=== PATIENT | male | born 1965 | race Caucasian/White ===

== ENCOUNTER 2018-05-06 10:25 | Inpatient (IN) | payer OTHER ==
[~2018-05-06] VITALS: Ht 175.3 cm; Wt 94.1 kg
[2018-05-06 11:53] LABS: BASOPHILS % 0.6 % (0.0-2.0); EOSINOPHILS % 3.4 % (0.0-5.0); HEMATOCRIT. 40.7 % (42.0-52.0); HEMOGLOBIN. 14.1 g/dL (14.0-18.0); LYMPHOCYTES % 11.9 % (20.0-50.0); MEAN CORPUSCULAR HEMOGLOBIN 31.3 pg (28.0-32.0); MEAN CORPUSCULAR VOLUME 90.3 fL (80.0-94.0); MEAN PLATELET VOLUME 8.3 fl (7.4-10.4); MONOCYTES % 5.6 % (2.0-8.0); NEUTROPHILS % 78.5 % (40.0-76.0); PLATELET 184 x1000/uL (130-400); RED BLOOD CELL COUNT 4.51 mill/uL (4.7-6.1); RED CELL DISTRIBUTION WIDTH 15.5 % (11.6-14.6)
[2018-05-06 12:04] LABS: CHLORIDE 105 mEq/L (98-107)
[2018-05-06 13:07] LABS: CLARITY URINE CLEAR (CLEAR); COLOR URINE YELLOW (YELLOW); KETONES URINE NEGATIVE (NEGATIVE); LEUKOCYTE ESTERASE URINE 2+ (NEGATIVE); NITRITE URINE NEGATIVE (NEGATIVE); OCCULT BLOOD URINE NEGATIVE (NEGATIVE); PH URINE 6.5 (4.5-8.0); PROTEIN URINE TRACE (NEGATIVE); SPECIFIC GRAVITY URINE 1.009 (1.005-1.030); UROBILINOGEN URINE 0.2 E.U./dL (0.2-1.0)
[2018-05-06 13:20] LABS: *AMPHETAMINES SCREEN URINE NEGATIVE (NEGATIVE); *BARBITURATES SCREEN URINE NEGATIVE (NEGATIVE); *BENZODIAZEPINES SCREEN URINE NEGATIVE (NEGATIVE); *COCAINE SCREEN URINE NEGATIVE (NEGATIVE); METHADONE URINE SCREEN NEGATIVE (NEGATIVE)
[2018-05-06 13:23] LABS: CANNABINOID URINE SCREEN NEGATIVE (NEGATIVE); OPIATES URINE SCREEN NEGATIVE (NEGATIVE); PHENCYCLIDINE URINE SCREEN NEGATIVE (NEGATIVE)
[2018-05-06] MEDS ORDERED: MORPHINE SULFATE 2 MG/ML CPJ (NOT FOR IM USE) IV ONE (20:30)
[2018-05-06] MEDS ORDERED: ACETAMINOPHEN 325MG TABLET PO PRN (21:45)
[2018-05-06] MEDS ORDERED: HYDROCODONE/ACETAMINOPHEN 5/325MG TABLET PO PRN (21:45)
[2018-05-06] MEDS ORDERED: ONDANSETRON HCL 4MG/2ML INJ IV PRN (21:45)
[2018-05-06] MEDS ORDERED: IPRATROPIUM/ALBUTEROL 0.5-3(2.5)MG/3ML NEB INH PRN (21:45)
[2018-05-06 22:00] VITALS: BP 156/117
[2018-05-07] VITALS: BP 172/114
[2018-05-07] MEDS: SODIUM CHLORIDE 0.9% 1,000 ML IV SCH ×2 (00:09→11:24)
[2018-05-07] MEDS: PIPERACILLIN/TAZ 3.375G PREMIX 50 ML IV SCH ×4 (00:13→17:20)
[2018-05-07] MEDS: ENOXAPARIN 30MG/0.3ML SYR SUBCUT SCH ×3 (00:14→21:17)
[2018-05-07 04:00] VITALS: BP 129/92
[2018-05-07 07:45] LABS: BASOPHILS % 0.5 % (0.0-2.0); EOSINOPHILS % 4.7 % (0.0-5.0); HEMATOCRIT. 37.4 % (42.0-52.0); HEMOGLOBIN. 12.7 g/dL (14.0-18.0); LYMPHOCYTES % 24.3 % (20.0-50.0); MEAN CORPUSCULAR HEMOGLOBIN 30.9 pg (28.0-32.0); MEAN PLATELET VOLUME 8.4 fl (7.4-10.4); MONOCYTES % 7.3 % (2.0-8.0); NEUTROPHILS % 63.2 % (40.0-76.0); PLATELET 162 x1000/uL (130-400); RED BLOOD CELL COUNT 4.11 mill/uL (4.7-6.1); RED CELL DISTRIBUTION WIDTH 15.6 % (11.6-14.6)
[2018-05-07 08:00] VITALS: BP 121/85
[2018-05-07 12:00] VITALS: BP 157/112
[2018-05-07] MEDS ORDERED: HYDR12.518 MT (13:05)
[2018-05-07] MEDS ORDERED: BENA20TA10 MT (13:05)
[2018-05-07] MEDS ORDERED: COLC0.6C3 MT (13:05)
[2018-05-07] MEDS: CLONIDINE 0.1MG TABLET PO PRN ×2 (14:18)
[2018-05-07 16:00] VITALS: BP 134/99
[2018-05-08] VITALS: BP 142/104
[2018-05-08] MEDS: SODIUM CHLORIDE 0.9% 1,000 ML IV SCH ×2 (00:01→14:00)
[2018-05-08] MEDS: PIPERACILLIN/TAZ 3.375G PREMIX 50 ML IV SCH ×3 (00:01→11:41)
[2018-05-08] MEDS: CLONIDINE 0.1MG TABLET PO PRN ×3 (00:02→18:20)
[2018-05-08 04:00] VITALS: BP 116/80
[2018-05-08 08:00] VITALS: BP 145/114
[2018-05-08 08:03] LABS: BASOPHILS % 0.6 % (0.0-2.0); HEMATOCRIT. 36.8 % (42.0-52.0); HEMOGLOBIN. 12.7 g/dL (14.0-18.0); LYMPHOCYTES % 16.7 % (20.0-50.0); MEAN CORPUSCULAR HEMOGLOBIN 31.5 pg (28.0-32.0); MEAN PLATELET VOLUME 8.3 fl (7.4-10.4); MONOCYTES % 5.2 % (2.0-8.0); NEUTROPHILS % 73.5 % (40.0-76.0); PLATELET 152 x1000/uL (130-400); RED BLOOD CELL COUNT 4.05 mill/uL (4.7-6.1); RED CELL DISTRIBUTION WIDTH 15.6 % (11.6-14.6)
[2018-05-08] MEDS: ENOXAPARIN 30MG/0.3ML SYR SUBCUT SCH (08:32)
[2018-05-08] MEDS ORDERED: DIATR MEGLU/DIATRIZOATE SOLN 30ML PO SCH (09:00)
[2018-05-08 12:00] VITALS: BP 134/98
[2018-05-08] MEDS ORDERED: IOHEXOL-300 100 ML BOTTLE ONE (13:54)
[2018-05-08 16:00] VITALS: BP 175/114
[2018-05-08 17:44] VITALS: BP 175/114
[2018-05-09] MEDS ORDERED: BENAZEPRIL 10MG TABLET PO SCH (09:00)
== END 2018-05-08 18:35 | disposition home or self-care (01) | DRG 682 ==
LOC: ER 10:25 → 7WST 17:35 → ENRESERV 19:46
PROVIDERS: ADMIT Internal Medicine; ATTEND Internal Medicine
DX: N17.9 Acute kidney failure, unspecified (principal); E43 Unspecified severe protein-calorie malnutrition; K63.2 Fistula of intestine; N39.0 Urinary tract infection, site not specified; K57.80 Diverticulitis of intestine, part unspecified, with perforation and abscess without bleeding; I13.0 Hypertensive heart and chronic kidney disease with heart failure and stage 1 through stage 4 chronic kidney disease, or unspecified chronic kidney disease; D64.9 Anemia, unspecified; K57.30 Diverticulosis of large intestine without perforation or abscess without bleeding; Z68.30 Body mass index [BMI] 30.0-30.9, adult; E66.9 Obesity, unspecified; E78.00 Pure hypercholesterolemia, unspecified; E78.1 Pure hyperglyceridemia; E78.5 Hyperlipidemia, unspecified; I50.9 Heart failure, unspecified; I71.9 Aortic aneurysm of unspecified site, without rupture; N18.2 Chronic kidney disease, stage 2 (mild)
CPT/HCPCS: 36415; 71045; 74176; 76705; 80048; 80061; 80305; 83036; 83880; 84443; 84484; 93005; 93970; 99285; J1650; J2543; J7030; Q9963; Q9967

== ENCOUNTER 2019-09-07 07:45 | Emergency (ER) | payer OTHER ==
[~2019-09-07] VITALS: Ht 177.8 cm; Wt 92.0 kg
[~2019-09-07 07:45] MED LIST: BENA20TA10 MT; COLC0.6C3 MT; HYDR12.518 MT
[2019-09-07 07:57] VITALS: BP 116/93
== END 2019-09-07 10:26 | disposition home or self-care (01) ==
LOC: ER 07:45
DX: R10.9 Unspecified abdominal pain (principal); E78.00 Pure hypercholesterolemia, unspecified; I10 Essential (primary) hypertension; Z98.890 Other specified postprocedural states
CPT/HCPCS: 99281